=== PATIENT | female | born 1985 | race Two or more races ===

== ENCOUNTER 2017-04-03 12:20 | Emergency (ER) | payer MEDICAID ==
[~2017-04-03] VITALS: Ht 167.6 cm; Wt 51.0 kg
[~2017-04-03 12:20] MED LIST: FERR-55 BC; PREN1TAB49 BC
[2017-04-03 12:24] VITALS: Ht 167.6 cm; Wt 51.0 kg
[2017-04-03 13:14] LABS: BASOPHILS % 0.5 % (0.0-2.0); EOSINOPHILS # 0.1 10^3/ul (0.0-0.5); HEMATOCRIT 41.2 % (37.0-47.0); HEMOGLOBIN 14.2 g/dl (12.0-16.0); LYMPHOCYTES # 1.8 10^3/ul (0.8-2.9); LYMPHOCYTES % 29.4 % (15.0-51.0); MEAN CORPUSCULAR HGB CONC 34.5 g/dl (32.0-37.0); MEAN CORPUSCULAR VOLUME 86.9 fl (82.0-101.0); MEAN PLATELET VOLUME 10.1 fl (7.4-10.4); MONOCYTE # 0.5 10^3/ul (0.3-0.9); MONOCYTES % 8.3 % (0.0-11.0); NEUTROPHIL # 3.7 10^3/ul (1.6-7.5); NEUTROPHILS % 59.6 % (39.0-77.0); PLATELET COUNT 197 10^3/UL (140-415); RED BLOOD COUNT 4.74 10^6/ul (4.20-5.40); RED CELL DISTRIBUTION WIDTH 12.7 % (11.5-14.5); WHITE BLOOD COUNT 6.2 10^3/ul (4.8-10.8)
[2017-04-03 13:22] LABS: ADD UMIC YES; UR ASCORBIC ACID 40 mg/dL (NEGATIVE); UR BILIRUBIN (Dip) NEGATIVE (NEGATIVE); UR BLOOD (Dip) 3+ mg/dL (NEGATIVE); UR CLARITY CLEAR (CLEAR); UR COLOR YELLOW (YELLOW); UR GLUCOSE (Dip) NEGATIVE (NEGATIVE); UR KETONES (Dip) NEGATIVE (NEGATIVE); UR LEUKOCYTE ESTERASE (Dip) NEGATIVE Leu/ul (NEGATIVE); UR MUCUS FEW /HPF (NONE SEEN); UR NITRITE (Dip) NEGATIVE (NEGATIVE); UR RBC 66 /HPF (0-5); UR SPECIFIC GRAVITY (Dip) 1.019 (1.003-1.030); UR SQUAMOUS EPITHELIAL CELL FEW /HPF (FEW); UR TOTAL PROTEIN (Dip) NEGATIVE (NEGATIVE); UR UROBILINOGEN (Dip) NEGATIVE (NEGATIVE)
[2017-04-03 13:31] LABS: INR 0.93; PARTIAL THROMBOPLASTIN TIME 26.6 Sec (25.0-35.0); PROTIME 12.5 Sec (12.2-14.2)
[2017-04-03 13:35] LABS: ALBUMIN 4.6 g/dl (3.3-4.9); ALBUMIN/GLOBULIN RATIO 1.31; BILIRUBIN,INDIRECT 0.3 mg/dl (0-1.1); BILIRUBIN,TOTAL 0.3 mg/dl (0.2-1.3); CALCIUM 9.6 mg/dl (8.4-10.2); CREATININE 0.62 mg/dl (0.44-1.00); POTASSIUM 3.9 mmol/L (3.5-5.1); TOTAL PROTEIN 8.1 g/dl (6.1-8.1)
[2017-04-03] MEDS ORDERED: BEN25 PO (13:41)
[2017-04-03] MEDS ORDERED: IBUP-1542 PO (13:41)
--- NOTE | 2017-04-03 13:46 | ERD ---
ER Documentation Chief Complaint Date/Time DATE: 04/03/17 TIME: 13:43 Chief Complaint bilateral upper thigh rash with bruises x 2 days and 2 weeks HPI Patient is a 31-year-old otherwise healthy female who presents complaining of rash on her bilateral upper medial thighs that she has had for 2 weeks. She states the rash looks like a bruise but she denies any trauma. She states it is itchy and sore. New soaps or foods or irritants she can think of. She has no family history of coagulopathy problems. ROS All systems reviewed and are negative except as per history of present illness. Medications Home Meds Active Scripts Ibuprofen* (Ibuprofen*) 600 Mg Tablet, 600 MG PO Q6, #30 TAB Prov:MEGAN CHING PA-C 04/03/17 Diphenhydramine Hcl* (Benadryl*) 25 Mg Cap, 25 MG PO Q6, #30 CAP Prov:MEGAN CHING PA-C 04/03/17 Reported Medications Ferrous Sulfate* (Ferrous Sulfate*) 325 Mg Tablet, 325 MG BC BID 07/22/11 Vits W-Ca,Fe,Fa(<1MG) () 1 Tab Tablet, 1 BC D 07/22/11 Allergies Allergies: Coded Allergies: No Known Allergies (Verified Allergy, Unknown, 04/03/17) Uncoded Allergies: nkda (Adverse Reaction, Unknown, 07/22/11) PMhx/Soc Medical and Surgical Hx: pt denies Medical Hx, pt denies Surgical Hx History of Surgery: No Anesthesia Reaction: No Hx Neurological Disorder: No Hx Respiratory Disorders: No Hx Cardiac Disorders: No Hx Psychiatric Problems: No Hx Miscellaneous Medical Probl: No Hx Alcohol Use: No Hx Substance Use: No Hx Tobacco Use: No Smoking Status: Never smoker FmHx Family History: No diabetes Physical Exam Vitals Vital Signs Date Time Temp Pulse Resp B/P Pulse Ox O2 Delivery O2 Flow Rate FiO2 04/03/17 12:24 98.8 72 20 104/57 100 Physical Exam Const: [] Head: Atraumatic Eyes: Normal Conjunctiva ENT: Normal External Ears, Nose and Mouth. Neck: Full range of motion..~ No meningismus. Resp: Clear to auscultation bilaterally Cardio: Regular rate and rhythm, no murmurs Abd: Soft, non tender, non distended. Normal bowel sounds Skin: Lateral upper medial thighs have areas of ecchymosis, no erythema, blanchable Result Diagram: 04/03/17 1300 04/03/17 1300 Results 24 hrs Laboratory Tests Test 04/03/17 12:55 04/03/17 13:00 Urine Color YELLOW Urine Clarity CLEAR Urine pH 6.0 Urine Specific [place] 1.019 Urine Ketones NEGATIVEmg/dL Urine Nitrite NEGATIVEmg/dL Urine Bilirubin NEGATIVEmg/dL Urine Urobilinogen NEGATIVEmg/dL Urine Leukocyte Esterase NEGATIVELeu/ul Urine Microscopic RBC 66/HPF Urine Microscopic WBC 0/HPF Urine Squamous Epithelial Cells FEW/HPF Urine Mucus FEW/HPF Urine Hemoglobin 3+mg/dL Urine Glucose NEGATIVEmg/dL Urine Total Protein NEGATIVEmg/dl White Blood Count 6.210^3/ul Red Blood Count 4.7410^6/ul Hemoglobin 14.2g/dl Hematocrit 41.2% Mean Corpuscular Volume 86.9fl Mean Corpuscular Hemoglobin 30.0pg Mean Corpuscular Hemoglobin Concent 34.5g/dl Red Cell Distribution Width 12.7% Platelet Count 60144^3/UL Mean Platelet Volume 10.1fl Neutrophils % 59.6% Lymphocytes % 29.4% Monocytes % 8.3% Eosinophils % 2.0% Basophils % 0.5% Nucleated Red Blood Cells % 0.0/100WBC Neutrophils # 3.710^3/ul Lymphocytes # 1.810^3/ul Monocytes # 0.510^3/ul Eosinophils # 0.110^3/ul Basophils # 0.010^3/ul Nucleated Red Blood Cells # 0.010^3/ul Prothrombin Time 12.5Sec Prothrombin Time Ratio 1.0 INR International Normalized Ratio 0.93 Activated Partial Thromboplast Time 26.6Sec Sodium Level 140mmol/L Potassium Level 3.9mmol/L Chloride Level 105mmol/L Carbon Dioxide Level 27mmol/L Anion Gap 12 Blood Urea Nitrogen 13mg/dl Creatinine 0.62mg/dl Glucose Level 75mg/dl Calcium Level 9.6mg/dl Total Bilirubin 0.3mg/dl Direct Bilirubin 0.00mg/dl Indirect Bilirubin 0.3mg/dl Aspartate Amino Transf (AST/SGOT) 23IU/L Alanine Aminotransferase (ALT/SGPT) 38IU/L Alkaline Phosphatase 49IU/L Total Protein 8.1g/dl Albumin 4.6g/dl Globulin 3.50g/dl Albumin/Globulin Ratio 1.31 Procedures/MDM Patient has bruises on her upper thighs. She denies any trauma or history of abuse. Her labs including coags and they were all normal limits coags. Chemistry panel is unremarkable. Patient was discharged with ibuprofen and Benadryl. Patient counseled regarding my diagnostic impression and care plan. Prior to discharge all questions answered. Pt agrees with treatment plan and understands strict return precautions. Pt is instructed to follow up with primary care provider within 24-48 hours. Precautionary instructions provided including instructions to return to the ER if not improving or for any worsening or changing symptoms or concerns. Departure Diagnosis: Primary Impression: Rash Condition: Stable Additional Instructions: Llame al doctor MAANA y love shelly ABDOULAYE PARA DENTRO DE 1-2 SANTAMARIA.Dgale a la secretaria que nosotros le instruimos hacer esta abdoulaye.Avise o llame si mayes condicin se empeora antes de la abdoulaye. Regresa aqui si peor o no mejor. MEGAN CHING PA-C Apr 03, 2017 13:46
== END 2017-04-03 14:04 | disposition home or self-care (01) ==
LOC: FTE 12:20
DX: R21 Rash and other nonspecific skin eruption (principal)
CPT/HCPCS: 80053; 81001; 85025; 85610; 85730; Z7502; 99283

== ENCOUNTER 2018-12-27 04:40 | Inpatient (IN) | payer MEDICAID ==
[~2018-12-27] VITALS: Ht 167.6 cm; Wt 68.2 kg
[~2018-12-27 04:40] MED LIST changes: +BEN25 PO; +IBUP-1542 PO
[2018-12-27 05:12] VITALS: BP 104/63; PULSE 68; RESP 16
--- NOTE | 2018-12-27 06:14 | TRIAGE ---
OB Triage Datetime Report Generated by CPN: 12/27/2018 06:14 Datetime: 12/27/2018 05:16 Time of Arrival: 12/27/2018 04:35 EGA: 39.0 Arrived By: Wheelchair Arrived From: Home Chief Complaint: c/o ucs Movement: Present Contractions: Irregular Time Contractions Began: 12/27/2018 01:00 Contractions: Q5-10 Rupture of Membranes: Denies Vaginal Bleeding: None Vaginal Discharge: Denies Recent Sexual Intercouse: Denies Abdominal Trauma: Not Applicable Patient Complaints: Contractions Time Provider Notified: 12/27/2018 05:00 Provider Notified: Dr Brandon Initial Plan: EFM,SVE Datetime: 12/27/2018 05:02 Stage of : OB Triage Maternal Assessment Level of Consciousness: Keenly Alert, Responsive Headache: Denies Blurred Vision: No Respiratory Effort: Unlabored Nausea/Vomiting: Denies RUQ Epigastric Pain: Denies Facial Edema: None Labor Evaluation Monitor Mode: External Resting Tone Larned: Relaxed Heart Rate Monitor Mode: External US Comments: FHR 140 Pain Assessment Pain Scale: 7 Pain Presence: Intermittent Pain Type: Contraction Pain Location: Abdomen
[2018-12-27] MEDS ORDERED: LACTATED RINGER'S 1,000 ML IV PRN (06:16)
[2018-12-27] MEDS ORDERED: LACTATED RINGER'S 1,000 ML IV SCH (06:16)
[2018-12-27] MEDS ORDERED: MINERAL OIL LIGHT 10 ML VIAL TOP ONE (06:30)
[2018-12-27] MEDS ORDERED: AMPICILLIN 2 GM/NS (PMX) 100 ML IV ONE (06:30)
[2018-12-27] MEDS ORDERED: OXYTOCIN 30 UNITS/LR 500 ML IV PRN ×2 (06:30→15:30)
[2018-12-27] MEDS ORDERED: MISOPROSTOL 200 MCG TAB PR PRN ×2 (06:30→15:30)
[2018-12-27] MEDS ORDERED: OXYTOCIN 30 UNITS/LR 500 ML IV SCH ×4 (06:30→15:18)
[2018-12-27] MEDS ORDERED: CARBOPROST 250 MCG INJ IM PRN ×2 (06:30→15:30)
[2018-12-27] MEDS ORDERED: IBUPROFEN 600 MG TAB PO PRN (06:30)
[2018-12-27] MEDS ORDERED: METHYLERGONOVINE 0.2 MG INJ IM PRN ×2 (06:30→15:30)
[2018-12-27] MEDS ORDERED: LIDOCAINE 1% (MPF) 30 ML INJ INJ PRN (06:30)
[2018-12-27] MEDS ORDERED: BUTORPHANOL 2 MG INJ IV PRN ×2 (06:30)
--- NOTE | 2018-12-27 08:10 | PREAC ---
Date/Time of Note Date/Time of Note DATE: 12/27/18 TIME: 08:09 Anesthesia Eval and Record Evaluation Time Pre-Procedure Interview DATE: 12/27/18 TIME: 08:09 Age 33 Sex female NPO: 8 hrs Preoperative diagnosis intrauterine Planned procedure labor epidural Past Medical History Past Medical History: Includes : : (3), Para: (2) Surgery & Anesthesia Issues No known issue Meds Anticoagulation: No Beta Myrtle within 24 hr: No Reason Beta Myrtle not given: Pt. not on B-Myrtle Reported Medications Vits W-Ca,Fe,Fa(<1MG) () 1 Tab Tablet, 1 BC D 07/22/11 Discontinued Reported Medications Ferrous Sulfate* (Ferrous Sulfate*) 325 Mg Tablet, 325 MG BC BID 07/22/11 Discontinued Scripts Ibuprofen* (Ibuprofen*) 600 Mg Tablet, 600 MG PO Q6, #30 TAB Prov:MEGAN CHING PA-C 04/03/17 Diphenhydramine Hcl* (Benadryl*) 25 Mg Cap, 25 MG PO Q6, #30 CAP Prov:MEGAN CHING PA-C 04/03/17 Current Medications Lactated Ringer's 1,000 ml @ 125 mls/hr Q8H IV Last administered on 12/27/18at 08:03; Admin Dose 125 MLS/HR; Start 12/27/18 at 06:16 Ampicillin 50 ml @ 100 mls/hr Q4H IV ; Start 12/27/18 at 10:30 Butorphanol Tartrate (Stadol) 1 mg Q2H PRN IV .PAIN SCALE 1-5; Start 12/27/18 at 06:30 Butorphanol Tartrate (Stadol) 2 mg Q2H PRN IV .PAIN SCALE 6-10; Start 12/27/18 at 06:30 Lidocaine (Xylocaine 1% (Mpf)) 30 ml ONCE PRN INJ .EPISIOTOMY; Start 12/27/18 at 06:30 Oxytocin/Lactated Ringer's 500 ml @ 500 mls/hr ONCE POST IV ; Start 12/27/18 at 06:30 Oxytocin/Lactated Ringer's 500 ml @ 125 mls/hr POST IV ; Start 12/27/18 at 06:30 Ibuprofen (Motrin) 600 mg ONCE PRN PO .PAIN 1-5; Start 12/27/18 at 06:30 Lactated Ringer's 1,000 ml @ 2,000 mls/hr Q30M PRN IV .ANESTHESIA; Start 12/27/18 at 06:16 Oxytocin/Lactated Ringer's 500 ml @ 0 mls/hr ONCE PRN IV .VAGINAL BLEEDING; Start 12/27/18 at 06:30 Methylergonovine Maleate (Methergine) 0.2 mg ONCE PRN IM .VAGINAL BLEEDING; Start 12/27/18 at 06:30 Carboprost Tromethamine (Hemabate) 250 mcg ONCE PRN IM .VAGINAL BLEEDING; Start 12/27/18 at 06:30 Misoprostol (Cytotec) 1,000 mcg ONCE PRN LA .VAGINAL BLEEDING; Start 12/27/18 at 06:30 Meds reviewed: Yes Allergies Coded Allergies: No Known Allergies (Verified Allergy, Unknown, 12/27/18) Allergies Reviewed: Yes Labs/Studies Labs Reviewed: Reviewed by anesthesiologist Result Diagram: 12/27/18 0725 Laboratory Tests 12/27/18 07:25 test: N/A Pre-procedure Exam Last vitals Vital Signs Date Temp Pulse Resp B/P (MAP) Pulse Ox O2 O2 Flow FiO2 Time Delivery Rate 12/27/18 97.8 68 16 104/63 Room Air 05:12 (77) Airway: Adequate mouth opening, Adequate thyromental dist Mallampati: Mallampati II Teeth: Normal Lung: Normal Heart: Normal ASA Physical Status ASA physical status: 2 Emergency: None Planned Anesthetic Neuraxial: Epidural Planned Pain Management Epidural Pre-operative Attestations Prior to commencing anesthesia and surgery, the patient was re-evaluated, there was verification of: *The patient's identity *The results of appropriate recent lab work and preoperative vital signs *The above evaluation not changing prior to induction *Anesthetic plan, risk benefits, alternative and complications discussed with patient/family; questions answered; patient/family understands, accepts and wishes to proceed. BARRERA VILLANUEVA MD Dec 27, 2018 08:10
[2018-12-27] MEDS ORDERED: FENTAnyl 2MCG/ML-ROPIV 0.2% 100 ML ONE (08:12)
[2018-12-27] MEDS ORDERED: ONDANSETRON 4 MG INJ IV PRN (08:30)
[2018-12-27] MEDS ORDERED: FENTAnyl 2MCG/ML-ROPIV 0.2% 100 ML BAG EPI SCH (08:30)
[2018-12-27] MEDS ORDERED: NALOXONE (0.4 MG/ML) INJ IV PRN (08:30)
[2018-12-27] MEDS ORDERED: DIPHENHYDRAMINE 50 MG INJ IV PRN (08:30)
--- NOTE | 2018-12-27 08:39 | PAC ---
Date/Time of Note Date/Time of Note DATE: 12/27/18 TIME: 08:39 Post-Anesthesia Notes Post-Anesthesia Note Last documented vital signs Vital Signs Date Temp Pulse Resp B/P (MAP) Pulse Ox O2 O2 Flow FiO2 Time Delivery Rate 12/27/18 97.8 68 16 104/63 Room Air 05:12 (77) Activity: WNL Respiratory function: WNL Cardiovascular function: WNL Mental status: Baseline Pain reasonably controlled: Yes Hydration appropriate: Yes Nausea/Vomiting absent: Yes Comments P: 112/64 HR: 78 RR: 15 T: 98 SaO2: 100% BARRERA VILLANUEVA MD Dec 27, 2018 08:39
[2018-12-27] MEDS ORDERED: AMPICILLIN 1 GM/NS (PMX) 50 ML IV SCH (10:30)
--- NOTE | 2018-12-27 12:37 | HP ---
Date/Time of Note Date/Time of Note DATE: 12/27/18 TIME: 12:36 OB - History Hx of Present Chief Complaint: term in labor : 3 Para: 2 Care: Good Care Ultrasounds: Normal mid trimester US Obstetrical Complications: None Past Family/Social History * Past Medical, Surgical, Family and Obstetric Histories reviewed from chart. OB Admission Exam Vital Signs Vital Signs Vital Signs Date Temp Pulse Resp B/P (MAP) Pulse Ox O2 O2 Flow FiO2 Time Delivery Rate 12/27/18 97.8 68 16 104/63 Room Air 05:12 (77) Physical Exam HEENT: WNL Heart: Rhythm Normal Lungs: Clear, Equal Abdomen: WNL Extremities: Normal Reflexes: Normal Cervical Dilatation: 10cm Effacement: 100% Station: +2 Membranes: Ruptured Amniotic Fluid: Clear Heart Rate: 130's Accelerations: Accelerations Present Decelerations: No Decelerations Varibility: Moderate Contractions on Admission: 6-10 Minutes Apart Intensity: Moderate Last 72 hours Lab Results CBC & BMP 12/27/18 07:25 OB Assessment/Plan Reason for admission: active labor Plan: Expectant Management MILLA MAZARIEGOS MD Dec 27, 2018 12:37
--- NOTE | 2018-12-27 12:38 | LDN ---
Date/Time of Note Date/Time of Note DATE: 12/27/18 TIME: 12:37 Delivery Summary Placenta Delivered: Spontaneously Meconium: none Episiotomy: No Perineal laceration: 1 Anesthesia type: Epidural Estimated blood loss: 300 Sponge & Needle done & correct: Yes All needle counts correct: Yes Any foreign bodies felt in the: No MILLA MAZARIEGOS MD Dec 27, 2018 12:38
[2018-12-27 14:30] VITALS: BP 105/59; PULSE 74; RESP 19
[2018-12-27] MEDS: LACTATED RINGER'S 1,000 ML IV* SCH ×2 (15:18→23:18)
[2018-12-27] MEDS ORDERED: ACETAMINOPHEN 325 MG TAB PO PRN (15:30)
[2018-12-27] MEDS ORDERED: HYDROCODONE/APAP (5/325) TAB PO PRN (15:30)
[2018-12-27] MEDS ORDERED: BENZOCAINE 20% 56 ML SPRAY TOP PRN (15:30)
[2018-12-27] MEDS ORDERED: MAGNESIUM HYDROXIDE 30ML CUP PO PRN (15:30)
[2018-12-27] MEDS ORDERED: ZOLPIDEM 5 MG TAB PO PRN (15:30)
[2018-12-27] MEDS ORDERED: DIPHENHYDRAMINE 25 MG CAP PO PRN (15:30)
[2018-12-27] MEDS ORDERED: LANOLIN HPA 1 PKT TOP PRN (15:30)
[2018-12-27] MEDS ORDERED: WITCH HAZEL/GLYCERIN PAD PR PRN (15:30)
[2018-12-27 17:14] VITALS: BP 107/58; PULSE 76; RESP 18
[2018-12-27] MEDS: IBUPROFEN 800 MG TAB PO SCH (17:59)
[2018-12-27 20:00] VITALS: BP 110/73; PULSE 72; RESP 18
[2018-12-28] VITALS: BP 84/67; PULSE 75; RESP 16
[2018-12-28] MEDS: IBUPROFEN 800 MG TAB PO SCH ×5 (00:31→23:31)
[2018-12-28 04:00] VITALS: BP 96/52; PULSE 64; RESP 18
[2018-12-28] MEDS: LACTATED RINGER'S 1,000 ML IV* SCH (07:18)
[2018-12-28 08:25] VITALS: BP 96/63; PULSE 62; RESP 18
[2018-12-28] MEDS: SENNA/DOCUSATE NA (8.6MG/50MG) TAB PO PRN (12:20)
[2018-12-28 15:30] VITALS: BP 94/53; PULSE 62; RESP 20
--- NOTE | 2018-12-28 16:05 | PN ---
Date/Time of Note Date/Time of Note DATE: 12/28/18 TIME: 16:02 OB Subjective Subjective Subjective PPD# 1 Patient is doing well. She denies nausea, vomiting, shortness of breath, chest pain, headache. She has been ambulating without difficulty, tolerating regular diet. Pain is well controlled on current medications OB Objective Objective Objective VS - Last 72 Hours, by Label Date Temp Pulse Resp B/P (MAP) Pulse Ox O2 O2 Flow FiO2 Time Delivery Rate 12/28/18 97.9 62 18 96/63 (74) Room Air 08:25 12/28/18 97.3 64 18 96/52 (67) Room Air 04:00 12/28/18 97.8 75 16 84/67 (73) Room Air 00:00 12/27/18 98.0 72 18 110/73 Room Air 20:00 (85) 12/27/18 98.3 76 18 107/58 17:14 (74) 12/27/18 98.0 74 19 105/59 Room Air 14:30 (74) 12/27/18 97.8 68 16 104/63 Room Air 05:12 (77) General: AAO X 3, comfortable, NAD, appropriate mood and affect. ABD: +BS. Soft, non-tender. Uterus 2 cm below umbilicus Flank: No CVA tenderness (B/L) LE: Mild edema. No clubbing, cyanosis, thigh or calf tenderness (B/L). Homans 'sign is negative Laboratory Tests Test 12/27/18 07:25 12/28/18 07:12 12/28/18 08:25 White Blood Count 9.6 10^3/ul 10.1 10^3/ul Red Blood Count 4.37 10^6/ul 4.02 10^6/ul Hemoglobin 12.8 g/dl 11.9 g/dl Hematocrit 38.3 % 35.4 % Mean Corpuscular Volume 87.6 fl 88.1 fl Mean Corpuscular 29.3 pg 29.6 pg Hemoglobin Mean Corpuscular 33.4 g/dl 33.6 g/dl Hemoglobin Concent Red Cell Distribution 13.4 % 13.4 % Width Platelet Count 144 10^3/UL 150 10^3/UL Mean Platelet Volume 10.4 fl 11.3 fl Immature Granulocytes % 0.700 % 0.800 % Neutrophils % 74.7 % 75.6 % Lymphocytes % 15.5 % 15.4 % Monocytes % 8.1 % 7.1 % Eosinophils % 0.7 % 0.9 % Basophils % 0.3 % 0.2 % Nucleated Red Blood Cells 0.0 /100WBC 0.0 /100WBC % Immature Granulocytes # 0.070 10^3/ul 0.080 10^3/ul Neutrophils # 7.2 10^3/ul 7.7 10^3/ul Lymphocytes # 1.5 10^3/ul 1.6 10^3/ul Monocytes # 0.8 10^3/ul 0.7 10^3/ul Eosinophils # 0.1 10^3/ul 0.1 10^3/ul Basophils # 0.0 10^3/ul 0.0 10^3/ul Nucleated Red Blood Cells 0.0 10^3/ul 0.0 10^3/ul # Prothrombin Time 11.9 Sec Prothrombin Time Ratio 0.9 INR International 0.87 Normalized Ratio Activated 27.2 Sec Partial Thromboplast Time Rapid Plasma Reagin NONREACTIVE Hepatitis B Surface NEGATIVE Antigen HIV (1&2) Antibody NEGATIVE Lab Scanned Report [facility] [id number] OB Assessment/Plan Other plan: 33 y/o s/p normal vaginal delivery. PPD#1 - AF, VSS - Baby is doing well, at bed side. She is bonding well - Contraception methods with R/B/A/FR discussed - Continue care - Discharge home tomorrow - Rx and instruction given - Follow up in 2 and 6 weeks at clinic LETA MYERS Dec 28, 2018 16:05
--- NOTE | 2018-12-28 16:07 | DS ---
Date/Time of Note Date/Time of Note DATE: 12/28/18 TIME: 16:05 Obstetrical Discharge Record Final Diagnosis Final Diagnosis: Term delivered Other Final Diagnosis 33 y/o s/p normal vaginal delivery. PPD#1. course was unremarkable. - AF, VSS - Baby is doing well, at bed side. She is bonding well - Contraception methods with R/B/A/FR discussed - Continue care - Discharge home tomorrow - Rx and instruction given - Follow up in 2 and 6 weeks at clinic Vaginal Delivery Obstetrical Delivery: Spontaneous Condition on Discharge Physical Assessment Voiding: Yes Bowel Movement: Yes Breast: Soft, non-tender Fundus: Firm Calf Tenderness: No Patient Condition: Stable LETA MYERS Dec 28, 2018 16:07
[2018-12-28 19:50] VITALS: BP 99/60; PULSE 68; RESP 19
[2018-12-29 04:00] VITALS: BP 98/59; PULSE 61; RESP 19
[2018-12-29] MEDS: IBUPROFEN 800 MG TAB PO SCH ×2 (05:29→11:50)
[2018-12-29 08:15] VITALS: BP 97/55; PULSE 61; RESP 16
[2018-12-29] MEDS ORDERED: DIPHTH/TET/ACEL PERTUSS (ADULT) 0.5 ML VIAL IM* ONE (09:00)
[2018-12-29] MEDS ORDERED: MEASLES,MUMPS,RUBELLA VACCINE INJ SC* ONE (09:00)
[2018-12-29] MEDS ORDERED: VARICELLA VACCINE LIVE/PF 1,350 UNIT/0.5 ML ML SC* ONE (09:00)
[2018-12-29] MEDS: SENNA/DOCUSATE NA (8.6MG/50MG) TAB PO PRN (10:24)
--- NOTE | 2018-12-30 14:49 | DELSUM ---
Delivery Summary A-C Datetime Report Generated by CPN: 12/30/2018 14:49 DELIVERY PERSONNEL Nursing Program Manager: Khemancisco, Veronique MATERNAL INFORMATION Delivery Anesthesia: Epidural Medications in Delivery: LR W/ 30 UNITS PITOCIN Delivery QBL (ml): 350 Placenta Cultured: No Maternal Complications: None LABOR SUMMARY EDC: 01/03/2019 00:00 No. Babies in Womb: 1 Attempted: No Labor Anesthesia: Epidural LABOR INFORMATION Reason for Induction: Not Applicable Onset of Labor: 12/27/2018 01:00 Complete Dilatation: 12/27/2018 11:44 Oxytocin: Augmentation Group B Beta Strep: Negative Antibiotics # of Doses: 1 Antibiotics Time of Last Dose: 12/27/2018 08:35 Steroids Given: None Reason Steroids Not Administered: Not Applicable MEMBRANES Membranes Rupture Method: Artificial Rupture of Membranes: 12/27/2018 11:44 Length of Rupture (hr): 0.28 Amniotic Fluid Color: Clear Amniotic Fluid Amount: Moderate Amniotic Fluid Odor: None STAGES OF LABOR Stage 1 hr: 10 Stage 1 min: 44 Stage 2 hr: 0 Stage 2 min: 17 Stage 3 hr: 0 Stage 3 min: 4 Total Time in Labor hr: 11 Total Time in Labor min: 5 VAGINAL DELIVERY Episiotomy: None Laceration Extension: First Degree Other Laceration: LABIAL Laceration Repair: Yes Initial Vag Sponge Count: 10 Final Vag Sponge Count: 10 Initial Vag Sharps Count: 1+1 Final Vag Sharps Count: 2 Sponge Count Correct: Yes; Vaginal Sweep Performed Sharps Count Correct: Yes BABY A INFORMATION Delivery Date/Time: 12/27/2018 12:01 Method of Delivery: Vaginal Born in Route : No : N/A Forceps: N/A Vacuum Extraction: N/A Shoulder Dystocia : N/A SHOULDER DYSTOCIA BABY A Delivery Date/Time: 12/27/2018 12:01 PRESENTATION/POSITION BABY A Presentation: Cephalic Cephalic Presentation: Vertex Breech Presentation: N/A PLACENTA INFORMATION BABY A Placenta Delivery Time : 12/27/2018 12:05 Placenta Method of Delivery: Spontaneous Placenta Status: Delivered SCORES BABY A Heart Rate 1 min: >100 bpm Resp Effort 1 min: Good Cry Reflex Irritability 1 min: Cough/Sneeze/Pulls Away Muscle Tone 1 min: Active Motion Color 1 min: Body [place], Extremit Blue Resuscitation Effort 1 min: Tactile Stimulation SCORE 1 MIN: 9 Heart Rate 5 min: >100 bpm Resp Effort 5 min: Good Cry Reflex Irritability 5 min: Cough/Sneeze/Pulls Away Muscle Tone 5 min: Active Motion Color 5 min: Body [place], Extremit Blue Resuscitation Effort 5 min: Tactile Stimulation SCORE 5 MIN: 9 INFORMATION BABY A Gestational Age at Delivery: 39.0 Gestational Status: Full Term- 39- 40.6 Weeks Infant Outcome : Liveborn Condition : Stable Infant Sex: Male IDENTIFICATION/MEDS BABY A ID Band Number: [id number] ID Band Location: Right Leg; Left Arm Sensor Applied: Yes Sensor Number: [id number] Sensor Location : Cord Clamp Vitamin K Given : Not Given Erythromycin Given: Not Given WEIGHT/LENGTH BABY A Birthweight (gm): 3040 Weight (lb): 6 Weight (oz): 11 Length (in): 20.00 Infant Length (cm): 50.80 CORD INFORMATION BABY A No. Cord Vessels: 3 Nuchal Cord : N/A Cord Blood Taken: Yes Infant Suction: Mouth; Nose ASSESSMENT BABY A Infant Complications: Multiple Late Decels; Multiple Variable Decels Physical Findings at Delivery: Within Normal Limits Respirations: Appears Normal Hha/ALS Called : Yes Care By: RT/RN Transferred To: Remains with Mother
== END 2018-12-29 13:20 | disposition home or self-care (01) | DRG 807 ==
LOC: OBT 04:40 → L-D 04:40 → OBT 06:15 → L-D 07:41 → PP1 14:45
PROVIDERS: ADMIT Obstetrics & Gynecology; ATTEND Obstetrics & Gynecology
PROC: 10E0XZZ Delivery of Products of Conception, External Approach (ICD-10-PCS; principal; 2018-12-27)
PROC: 0HQ9XZZ Repair Perineum Skin, External Approach (ICD-10-PCS; 2018-12-27)
DX: O70.9 Perineal laceration during delivery, unspecified (principal); Z37.0 Single live birth; Z3A.39 39 weeks gestation of pregnancy
CPT/HCPCS: 62322; 76815; 85025; 85610; 85730; 86592; 86703; 86762; 86850; 86870; 86885; 86900; 86901; 87340; 90716; 99464; G0463; J0290; J2590; J2790; J3010; J7120